=== PATIENT | male | born 1990 ===

== ENCOUNTER 2020-02-24 12:31 | Emergency (ER) | payer SELFPAY ==
[2020-02-24] MEDS ORDERED: IPRATROPIUM/ALBUTEROL SULFATE 3 ML AMPUL.NEB IH ONE (16:11)
--- NOTE | 2020-02-24 16:11 | Emergency Department Report ---
Minor Respiratory - HPI Chief Complaint: Upper Respiratory Infection Stated Complaint: CHEST PRESSURE/HOLT/SWEATS Time Seen by Provider: 02/24/20 16:08 Duration: 3 Days Pain Location: Nose, Chest Severity: moderate Minor Respiratory: Yes Able to Tolerate Fluids, Yes Cough, No Rhinorrhea, No Sore Throat, No Ear Pain, No Sick Contacts, No Hemoptysis, No Chest Pain, No Shortness of Breath, No Fever Other History: Patient is a 29-year-old -[place] male that comes to the emergency room complaining of chills, generalized muscle aches and pains, a mild cough, and loss of taste and smell. He is ambulatory, nontoxic and [id number] on arrival to [facility]. He has no known exposures to COVID-19. Patient does have underlying asthma. Room air sat 93%. He is not tachycardic or hypotensive ED Review of Systems ROS: Stated complaint: CHEST PRESSURE/HOLT/SWEATS Other details as noted in HPI Comment: All other systems reviewed and negative ED Past Medical Hx - Past Medical History Previous Medical History?: Yes Hx Asthma: Yes - Surgical History Past Surgical History?: No - Family History Family history: no significant - Social History Smoking Status: Current Some Day Smoker Substance Use Type: Alcohol - Medications Home Medications: Home Medications Medication Instructions Recorded Confirmed Last Taken Type Albuterol Sulfate [Proair 90 mcg IH QID PRN #1 aer.[email or web address] 02/24/20 Unknown Rx Respiclick] Azithromycin [Zithromax Z-ADAM] 250 mg PO DAILY #6 tablet 02/24/20 Unknown Rx Cetirizine HCl [ZyrTEC] 10 mg PO DAILY #30 capsule 02/24/20 Unknown Rx predniSONE [Deltasone] 20 mg PO DAILY #5 tablet 02/24/20 Unknown Rx Minor Respiratory Exam - Exam General: Vital signs noted. No distress. Alert and acting appropriately. HEENT: Yes Moist Mucous Membranes, No Pharyngeal Erythema, No Pharyngeal Exudates, No Rhinorrhea, No Conjuctival Injection, No Frontal Tenderness, No Maxillary Tenderness Ear: Neither TM Bulge, Neither TM Erythema, Neither EAC Pain, Neither EAC Discharge Neck: Yes Supple, No Adenopathy Lungs: Yes Good Air Exchange, Yes Wheezes, No Ronchi, No Stridor, No Cough, No Labored Respirations, No Retractions, No Use of Accessory Muscles, No Other Abnormal Lung Sounds Heart: Yes Regular, No Murmur Abdomen: Yes Normal Bowel Sounds, No Tenderness, No Peritoneal Signs Skin: No Rash, No Edema Neurologic: Alert and oriented, no deficits. Musculoskeletal: Unremarkable. ED Course Vital Signs 02/24/20 12:51 Temperature 98.1 F Pulse Rate 88 Respiratory 20 Rate Blood Pressure 138/79 O2 Sat by Pulse 93 Oximetry ED Medical Decision Making - Radiology Data Radiology results: report reviewed, image reviewed nap - Medical Decision Making X-ray noted. There is no Covid pneumonia. There is no consolidation or infiltrate. Given patient's underlying comorbid condition of asthma, patient being discharged home with azithromycin prednisone and symptomatic treatment. I have explained to him that if he wants a definitive Covid test he will need to see an testing site that does rapid testing. I have given him some referrals. Patient is taking p.o. without difficulty. Patient has been educated on going home quarantining, performing good handwashing, and wearing his mask. Patient being discharged home with discharge instructions including diet, activity, follow-up and medications. He verbalizes understanding. Vital Signs 02/24/20 12:51 Temperature 98.1 F Pulse Rate 88 Respiratory 20 Rate Blood Pressure 138/79 O2 Sat by Pulse 93 Oximetry - Differential Diagnosis asthma, covid, pna Critical care attestation.: If time is entered above; I have spent that time in minutes in the direct care of this critically ill patient, excluding procedure time. ED Disposition Clinical Impression: URTI (acute upper respiratory infection), Asthma exacerbation, Person under investigation for COVID-19 Disposition: DC- TO HOME OR SELFCARE Is pt being admited?: No Does the pt Need Aspirin: No Condition: Stable Instructions: COVID-19 Frequently Asked Questions, COVID-19, COVID-19: How to Protect Yourself and Others - CDC, COVID-19 Additional Instructions: Motrin or Tylenol for pain. Stay well-hydrated with water Medication as ordered today Quarantine for 10 days protecting your family and friends [facility] can do rapid Covid testing They are located in [facility] and many other locations. Diet and activity as tolerated. Good handwashing and wear your mask. Referral to local primary care provided below Prescriptions: predniSONE [Deltasone] 20 mg PO DAILY #5 tablet Albuterol Sulfate [Proair Respiclick] 90 mcg IH QID PRN #1 aer.[email or web address] PRN Reason: Wheezing Azithromycin [Zithromax Z-ADAM] 250 mg PO DAILY #6 tablet Cetirizine HCl [ZyrTEC] 10 mg PO DAILY #30 capsule Referrals: ZAKI SARGENT MD [Staff Physician] - 3-5 Days Time of Disposition: 16:25
[2020-02-24] MEDS ORDERED: IBUPROFEN 800 MG TAB PO ONE (16:28)
--- NOTE | 2020-02-24 16:35 | XRay Report ---
XR chest routine 2V INDICATION / CLINICAL INFORMATION: cough COMPARISON: None available. FINDINGS: SUPPORT DEVICES: None. HEART / MEDIASTINUM: No significant abnormality. LUNGS / PLEURA: Lungs are clear. Costophrenic sulci are sharp. No pneumothorax. ADDITIONAL FINDINGS: No significant additional findings. IMPRESSION: 1. No acute findings. Signer Name: Sonny Pérez MD Signed: 02/24/2020 4:30 PM Workstation Name: [id number]
[2020-02-24 17:32] VITALS: BP 140/81
== END 2020-02-24 17:31 | disposition home or self-care (01) ==
LOC: ED 12:31
DX: J45.901 Unspecified asthma with (acute) exacerbation (principal); Z20.828 Contact with and (suspected) exposure to other viral communicable diseases; J06.9 Acute upper respiratory infection, unspecified; F17.200 Nicotine dependence, unspecified, uncomplicated; Z79.899 Other long term (current) drug therapy
CPT/HCPCS: 71046; 94640; 99283